=== PATIENT | male | born 1940 | race Caucasian/White ===

== ENCOUNTER 2018-06-07 07:11 | Emergency (ER) | payer MEDICARE ==
[~2018-06-07] VITALS: Ht 170.2 cm; Wt 83.0 kg
--- NOTE | 2018-06-07 07:22 | NUR ---
[id number], FROM [facility], C/O LOWER BACK PAIN SCIATICA, RECENTLY DISCHARGE FROM [facility] FOR SAME REASON, TO ER BED 6, HOOKED TO MONITOR, AWAITING MD PORTILLO
--- NOTE | 2018-06-07 07:40 | NUR ---
DR FERNANDEZ AT BEDSIDE
[2018-06-07] MEDS ORDERED: POLY17PO4 PO (07:43)
[2018-06-07] MEDS ORDERED: HYDR-4384 PO (07:43)
[2018-06-07] MEDS ORDERED: METH4TAB PO (07:43)
[2018-06-07] MEDS ORDERED: PANT40TA2 PO (07:43)
[2018-06-07] MEDS ORDERED: ASPI-1169 PO (07:43)
[2018-06-07] MEDS ORDERED: GABA-534 PO (07:43)
[2018-06-07] MEDS ORDERED: ATOR10TA PO (07:43)
[2018-06-07] MEDS ORDERED: CYCL5TAB PO (07:43)
[2018-06-07] MEDS ORDERED: DIAZ10TA4 PO (07:43)
[2018-06-07] MEDS ORDERED: LIDO30AD10 TP (07:43)
[2018-06-07] MEDS ORDERED: MAGN400O6 PO (07:43)
[2018-06-07] MEDS ORDERED: DOCU-141 PO (07:43)
[2018-06-07] MEDS ORDERED: MORP15TA PO (07:43)
[2018-06-07] MEDS ORDERED: RAMI10CA69 PO (07:43)
[2018-06-07] MEDS ORDERED: NA P133E RC (07:43)
[2018-06-07] MEDS ORDERED: BISA10SU8 RC (07:43)
[2018-06-07] MEDS ORDERED: OXYM-35 BNOSTRILS (07:43)
[2018-06-07] MEDS ORDERED: NEBI5TAB8 PO (07:43)
[2018-06-07] MEDS ORDERED: CHOL100044 PO (07:43)
[2018-06-07] MEDS ORDERED: HYDROCODONE/APAP 5/325MG 1 EACH TABLET ONE (07:52)
[2018-06-07] MEDS ORDERED: BENAZEPRIL HCL 10 MG TABLET ONE (07:53)
[2018-06-07] MEDS ORDERED: BENAZEPRIL HCL 10 MG TABLET PO ONE (08:00)
[2018-06-07] MEDS ORDERED: HYDROCODONE/APAP 5/325MG 1 EACH TABLET PO ONE (08:00)
--- NOTE | 2018-06-07 08:36 | NUR ---
Patient discharged to home in stable condition. Written and verbal after care instructions given. Patient verbalizes understanding of instruction.
[2018-06-07 08:47] VITALS: BP 144/98
== END 2018-06-07 08:47 | disposition home or self-care (01) ==
LOC: ER 07:14
DX: M54.42 Lumbago with sciatica, left side (principal); I10 Essential (primary) hypertension; K21.9 Gastro-esophageal reflux disease without esophagitis; E78.5 Hyperlipidemia, unspecified

== ENCOUNTER 2018-07-19 13:19 | Emergency (ER) | payer MEDICARE, BC ==
[~2018-07-19] VITALS: Ht 170.2 cm; Wt 83.0 kg
[~2018-07-19 13:19] MED LIST: ASPI-1169 PO; ATOR10TA PO; BISA10SU8 RC; CHOL100044 PO; CYCL5TAB PO; DIAZ10TA4 PO; DOCU-141 PO; GABA-534 PO; HYDR-4384 PO; LIDO30AD10 TP; MAGN400O6 PO; METH4TAB PO; MORP15TA PO; NA P133E RC; NEBI5TAB8 PO; OXYM-35 BNOSTRILS; PANT40TA2 PO; POLY17PO4 PO; RAMI10CA69 PO
--- NOTE | 2018-07-19 13:25 | NUR ---
SEEN AND EXAMINED BY DR. CISSE.
--- NOTE | 2018-07-19 13:31 | NUR ---
PT bib son, from home, c/o painful urination since friday, PT IS AAOX4, NOT IN RESPIRATORY DISTRESS, V/S STABLE, KEPT RESTED AND COMFORTABLE, WILL CONTINUE TO MONITOR.
--- NOTE | 2018-07-19 13:36 | NUR ---
URINAL GIVEN BUT UNABLE TO PROVIDE URINE SPECIMEN.
[2018-07-19] MEDS ORDERED: LIDOCAINE 2% JEL UROJET 10 ML MM ONE (13:59)
[2018-07-19] MEDS ORDERED: HYDR-3980 PO (14:09)
[2018-07-19] MEDS ORDERED: GABA-534 PO (14:09)
[2018-07-19] MEDS ORDERED: LISI40TA4 PO (14:09)
[2018-07-19] MEDS ORDERED: PRAV40TA3 PO (14:09)
--- NOTE | 2018-07-19 14:14 | NUR ---
URINE SPECIMEN COLLECTED VIA STRAIGHT CATH AND SENT TO LAB.
[2018-07-19 14:18] LABS: APPEARANCE,URINE Turbid (CLEAR); BILIRUBIN,URINE Negative (NEGATIVE); BLOOD, URINE Large Ery/uL (NEGATIVE); COLOR,URINE Yellow (YELLOW); KETONES,URINE Negative (NEGATIVE); LEUKOCYTE ESTERASE ,URINE Small (NEGATIVE); NITRITE, URINE Negative (NEGATIVE); PH,URINE 5.5 (5.0-8.0); PROTEIN,URINE 30 mg/dl (NEGATIVE); UGLUCOSE Negative (NEGATIVE); UROBILINOGEN,URINE 0.2 EU/dL (0.2)
[2018-07-19 14:26] LABS: BACTERIA,URINE Many /HPF (None Seen); RBC,URINE TOO NUMEROUS TO COUN /HPF (0-2); SQUAMOUS EPITHELIAL CELL,UR Few /HPF (None Seen); WBC,URINE 21-50 /HPF (0-3)
[2018-07-19] MEDS ORDERED: DOCU100T9 PO (14:30)
[2018-07-19] MEDS ORDERED: CHOL20004 PO (14:30)
[2018-07-19] MEDS ORDERED: ASPI-605 PO (14:30)
[2018-07-19] MEDS ORDERED: CEPHALEXIN MONOHYDRATE 500 MG CAPSULE PO ONE ×2 (14:57→15:00)
[2018-07-19 15:06] VITALS: BP 149/78
--- NOTE | 2018-07-19 15:06 | NUR ---
ANGLIN CATH INSERTED AND LEG BAG PROVIDED.
== END 2018-07-19 15:11 | disposition home or self-care (01) ==
LOC: ER 13:23
DX: N39.0 Urinary tract infection, site not specified (principal); R33.9 Retention of urine, unspecified; I10 Essential (primary) hypertension; E78.5 Hyperlipidemia, unspecified; K21.9 Gastro-esophageal reflux disease without esophagitis; M54.40 Lumbago with sciatica, unspecified side; Z79.82 Long term (current) use of aspirin
CPT/HCPCS: 51702; 81001; 87077; 87086; 87186; 99284; J3490; 81000-TC